=== PATIENT | female | born 1985 | race Caucasian/White ===

== ENCOUNTER 2020-12-18 14:42 | Emergency (ER) | payer OTHER ==
[~2020-12-18 14:42] MED LIST: CEFUROXIME500 MG PO
[2020-12-18 15:33] LABS: HEMOGLOBIN 14.8 gm/dl (12.3-15.3); RED BLOOD COUNT 5.09 M/UL (4.00-5.10); WHITE BLOOD COUNT 12.3 K/UL (4.5-11.0)
[2020-12-18 15:54] LABS: BUN/CREATININE RATIO 21 (0-10)
[2020-12-18] MEDS ORDERED: IBU600 MG PO (18:33)
== END 2020-12-18 19:10 | disposition home or self-care (01) ==
LOC: ER1 14:42
PROVIDERS: Internal Medicine
DX: R07.9 Chest pain, unspecified (principal); F17.210 Nicotine dependence, cigarettes, uncomplicated; Z90.710 Acquired absence of both cervix and uterus; Z85.43 Personal history of malignant neoplasm of ovary
CPT/HCPCS: 36415; 71046; 80053; 82550; 82553; 84484; 85025; 93005; 96374; 96375; 99285; J2270; J2405

== ENCOUNTER 2021-11-06 14:48 | Emergency (ER) | payer OTHER ==
[~2021-11-06 14:48] MED LIST changes: +IBU600 MG PO
[2021-11-06 16:40] LABS: HEMOGLOBIN 15.8 gm/dl (12.3-15.3); RED BLOOD COUNT 5.51 M/UL (4.00-5.10); WHITE BLOOD COUNT 10.2 K/UL (4.5-11.0)
[2021-11-06 17:10] LABS: BUN/CREATININE RATIO 20 (0-10)
[2021-11-06] MEDS ORDERED: IBUPROFEN600 MG PO (17:18)
== END 2021-11-06 17:50 | disposition home or self-care (01) ==
LOC: ER1 14:48
PROVIDERS: Nurse Practitioner
DX: N13.30 Unspecified hydronephrosis (principal); F17.210 Nicotine dependence, cigarettes, uncomplicated; Z20.822 Contact with and (suspected) exposure to COVID-19; Z90.710 Acquired absence of both cervix and uterus
CPT/HCPCS: 0240U; 80053; 85025; 96374; 99284; J1885; J2270; J2405

== ENCOUNTER 2021-12-19 18:42 | Observation (INO) | payer OTHER ==
[~2021-12-19] VITALS: Ht 170.2 cm; Wt 117.9 kg
[~2021-12-19 18:42] MED LIST changes: +IBUPROFEN600 MG PO
[2021-12-19 19:20] LABS: HEMOGLOBIN 14.5 gm/dl (12.3-15.3); RED BLOOD COUNT 4.9 M/UL (4.00-5.10); WHITE BLOOD COUNT 10.6 K/UL (4.5-11.0)
[2021-12-19 19:44] LABS: BUN/CREATININE RATIO 12 (0-10)
[2021-12-20] MEDS ORDERED: FUROSEMIDE20 MG PO (09:34)
[2021-12-20] MEDS ORDERED: LEVOFLOXACIN750 MG PO (10:26)
== END 2021-12-20 14:00 | disposition home or self-care (01) ==
LOC: ER1 18:42 → CDU 12-20 00:10 → M/S 12-20 00:10
PROVIDERS: Physician Assistant Medical; ADMIT Internal Medicine
DX: A41.9 Sepsis, unspecified organism (principal); N10 Acute pyelonephritis; N13.6 Pyonephrosis; K21.9 Gastro-esophageal reflux disease without esophagitis; I10 Essential (primary) hypertension; F17.210 Nicotine dependence, cigarettes, uncomplicated; E66.9 Obesity, unspecified; Z68.34 Body mass index [BMI] 34.0-34.9, adult; Z85.41 Personal history of malignant neoplasm of cervix uteri; Z90.710 Acquired absence of both cervix and uterus
CPT/HCPCS: 80053; 81001; 83605; 85025; 87040; 87086; 96374; 96375; 96376; 99285; G0378; J0696; J1885; Q9967